=== PATIENT | male | born 1950 | race Caucasian/White ===

== ENCOUNTER 2019-01-30 13:35 | Emergency (ER) | payer MEDICARE, OTHER ==
[~2019-01-30] VITALS: Ht 188 cm; Wt 98.2 kg
[2019-01-30] MEDS ORDERED: SODIUM CHLORIDE FLUSH 10ML SYR IVF ONE (14:00)
--- NOTE | 2019-01-30 14:05 | NUR ---
PT C/O ABD PAIN SIMILAR TO DIVERTICULITIS AFTER JUSTING FINISHING ANTIBIOTICS TO TREAT DIVERTICULITIS. IV STARTED. PT DENIES N/V/D OR BLOOD IN STOOL.
[2019-01-30] MEDS ORDERED: LEVO175T5 PO (14:07)
[2019-01-30 14:20] LABS: BASOPHILS # (AUTO) 0.05 x10^3/uL (0-0.1); BASOPHILS % (AUTO) 1 % (0-1); EOSINOPHILS # (AUTO) 0.04 x10^3/uL (0-0.4); EOSINOPHILS % (AUTO) 1 % (1-7); LYMPHOCYTES # (AUTO) 1.65 x10^3/uL (1-3.4); LYMPHOCYTES % (AUTO) 33 % (22-44); MD NO; MEAN CORPUSCULAR HEMOGLOBIN 32.9 pg (27.5-34.5); MEAN CORPUSCULAR HGB CONC 33.4 g/dL (33.2-36.2); MEAN CORPUSCULAR VOLUME 98.4 fL (81-97); MEAN PLATELET VOLUME 8.5 fL (7.4-10.4); MONOCYTES # (AUTO) 0.26 x10^3/uL (0.2-0.8); MONOCYTES % (AUTO) 5 % (2-9); NEUTROPHILS % (AUTO) 60 % (42-75); PLATELET COUNT 110 x10^3/uL (130-400); RED CELL DISTRIBUTION WIDTH 14.8 % (9.4-14.8)
[2019-01-30 14:31] LABS: ALBUMIN 3.9 g/dL (3.4-5.0); ANION GAP 5 mmol/L (5-15); CALCIUM 8.7 mg/dL (8.5-10.1); CHLORIDE 108 mmol/L (98-107)
[2019-01-30 14:36] LABS: ALANINE AMINOTRANSFERASE 18 U/L (12-78); ALKALINE PHOSPHATASE 61 U/L (45-117); BILIRUBIN,TOTAL 0.6 mg/dL (0.2-1.0); CREATININE 1.21 mg/dL (0.7-1.3); TOTAL PROTEIN 6.2 g/dL (6.4-8.2)
[2019-01-30] MEDS ORDERED: OMNIPAQUE 350 MG/ML, 100ML BOTTLE ONE (14:55)
--- NOTE | 2019-01-30 15:10 | NUR ---
PT RESTING IN BED IN NAD. WAITING FOR RESULTS. VSS.
[2019-01-30 15:36] LABS: MICROSCOPIC NOT IND
[2019-01-30 15:44] LABS: CULTURE INDICATED? NO
--- NOTE | 2019-01-30 15:56 | NUR ---
PT REFUSSE ANY PAIN MEDICATIONS AT THIS TIME. DR. LEAVITT WAS AT BEDSIDE. US ADDED ON.
--- NOTE | 2019-01-30 16:00 | NUR ---
PT TO US.
--- NOTE | 2019-01-30 16:45 | NUR ---
PT BACK FROM US. VSS. WAITING FOR RESULTS.
[2019-01-30 17:54] VITALS: BP 133/70
--- NOTE | 2019-01-30 17:58 | NUR ---
TASK RN: DC EDUCATION PROVIDED, PT DEMONSTRATES UNDERSTANDING. PT AMBULATED STEADILY TO [place] WITH RN AND SO. SO TO TRANSPORT PT HOME.
== END 2019-01-30 18:00 | disposition home or self-care (01) ==
LOC: ED 17:03
DX: R10.13 Epigastric pain (principal)
CPT/HCPCS: 36415; 74177; 76700; 80053; 81003; 83690; 85025; 93005; 99284; Q9967